=== PATIENT | female | born 1960 | race Caucasian/White ===

== ENCOUNTER → 2019-05-07 | Outpatient (CLI) | payer OTHER | END | disposition home or self-care (01) | LOC: CFH 11:58 | PROVIDERS: ATTEND Family Medicine | DX: N64.4 Mastodynia (principal); R92.2 Inconclusive mammogram | CPT/HCPCS: 76642; 77066; G0279 ==

== ENCOUNTER 2019-11-24 19:20 | Emergency (ER) | payer OTHER ==
[~2019-11-24] VITALS: Ht 170.2 cm; Wt 61.1 kg
--- NOTE | 2019-11-24 19:41 | NUR ---
PT C/O RT FLANK PAIN (CHRONIC) "I CAN'T CONTROL IT TODAY". TAKES PERCOCET -LAST DOSE 0 TODAY. DENIES KIDNEY STONES. HX: SCOLIOSIS, "DISKS". DENIES URINARY SX. LAST ORAL INTAKE: COFFEE THIS MORNING. PT'S SPOUSE & DAUGHTER IN ROOM.
[2019-11-24] MEDS ORDERED: KETOROLAC 30 MG/1 ML IM ONE (20:00)
[2019-11-24] MEDS ORDERED: KETOROLAC 60 MG/2 ML ONE (20:05)
[2019-11-24 20:10] LABS: BASOPHILS % (AUTO) 1 % (0-1); EOSINOPHILS # (AUTO) 0.05 x10^3/uL (0-0.4); EOSINOPHILS % (AUTO) 0 % (1-7); LYMPHOCYTES # (AUTO) 2.46 x10^3/uL (1-3.4); LYMPHOCYTES % (AUTO) 20 % (22-44); MD NO; MEAN CORPUSCULAR HEMOGLOBIN 32.9 pg (27.0-34.8); MEAN CORPUSCULAR HGB CONC 33.2 g/dL (32.4-35.8); MEAN CORPUSCULAR VOLUME 99.1 fL (80-100); MONOCYTES # (AUTO) 0.56 x10^3/uL (0.2-0.8); MONOCYTES % (AUTO) 5 % (2-9); NEUTROPHILS # (AUTO) 8.98 x10^3/uL (1.8-6.8); NEUTROPHILS % (AUTO) 74 % (42-75); PLATELET COUNT 352 x10^3/uL (130-400); RED BLOOD COUNT 4.58 x10^6/uL (3.82-5.3)
[2019-11-24 20:19] LABS: ALANINE AMINOTRANSFERASE 17 U/L (12-78); ANION GAP 4 mmol/L (5-15); CALCIUM 8.3 mg/dL (8.5-10.1); CHLORIDE 108 mmol/L (98-107); CREATININE 0.74 mg/dL (0.55-1.02)
[2019-11-24] MEDS ORDERED: OXYC-306 PO (20:19)
[2019-11-24] MEDS ORDERED: PANT40TA3 PO (20:19)
[2019-11-24] MEDS ORDERED: ALPR1TAB2 PO (20:19)
[2019-11-24] MEDS ORDERED: ROMO210S INJ (20:19)
[2019-11-24] MEDS ORDERED: ZOLP10TA PO (20:19)
[2019-11-24 20:21] LABS: ALKALINE PHOSPHATASE 59 U/L (45-117); BILIRUBIN,TOTAL 0.2 mg/dL (0.2-1.0); TOTAL PROTEIN 7.4 g/dL (6.4-8.2)
[2019-11-24 20:23] VITALS: BP 106/65
[2019-11-24] MEDS ORDERED: METHOCARBAMOL 750 MG TABLET ONE (21:22)
--- NOTE | 2019-11-24 21:26 | NUR ---
KEON GIVEN. PT STATES "I CAN NOT GO BACK HOME LIKE THIS, I'M IN TOO MUCH PAIN". OBSERVED PT SIT UP FROM SUPINE POSITION, LEAN FROM BED TO ROOM COUNTER AND BACK TO SITTING POSITION. FAMILY IN ROOM.
[2019-11-24] MEDS ORDERED: METHOCARBAMOL 750 MG TABLET PO ONE (21:30)
--- NOTE | 2019-11-24 22:09 | NUR ---
DC INSTRUCTIONS PROVIDED TO PT. PT ANGRY ABOUT DISCHARGE AND NO FURTHER INJECTIBLE MEDICATIONS. STATES "THIS IS BULLSHIT!", "I'M NEVER COMING BACK HERE". PT AMBULATORY TO DC W/ QUICK STEADY GAIT.
== END 2019-11-24 22:14 | disposition home or self-care (01) ==
LOC: ED 20:56
DX: G89.29 Other chronic pain (principal); M54.5 Low back pain; M54.6 Pain in thoracic spine; Z87.891 Personal history of nicotine dependence
CPT/HCPCS: 36415; 80053; 85025; 96372; 99283; J1885

== ENCOUNTER 2020-07-12 17:00 | Emergency (ER) | payer OTHER ==
[~2020-07-12] VITALS: Ht 170.2 cm; Wt 62.7 kg
[~2020-07-12 17:00] MED LIST: ALPR1TAB2 PO; OXYC-306 PO; PANT40TA3 PO; ROMO210S INJ; ZOLP10TA PO
[2020-07-12] MEDS ORDERED: KETOROLAC 30 MG/1 ML ONE (17:59)
[2020-07-12] MEDS ORDERED: MORPHINE SULFATE 4 MG/ML, 1ML ONE (17:59)
[2020-07-12] MEDS ORDERED: ONDANSETRON 2MG/ML, 2ML ONE (17:59)
[2020-07-12] MEDS ORDERED: MORPHINE SULFATE 4 MG/ML, 1ML IVPush PRN (18:00)
[2020-07-12] MEDS ORDERED: SODIUM CHLORIDE 0.9% 1,000ML IVBOLUS ONE (18:00)
[2020-07-12] MEDS ORDERED: SODIUM CHLORIDE FLUSH 10ML SYR IVF ONE (18:00)
[2020-07-12] MEDS ORDERED: KETOROLAC 30 MG/1 ML IVPush ONE (18:00)
[2020-07-12] MEDS ORDERED: ONDANSETRON 2MG/ML, 2ML IVPush ONE (18:00)
[2020-07-12 18:13] LABS: BASOPHILS % (AUTO) 1 % (0-1); EOSINOPHILS % (AUTO) 1 % (1-7); LYMPHOCYTES % (AUTO) 32 % (22-44); MEAN CORPUSCULAR HEMOGLOBIN 33.6 pg (27.0-34.8); MEAN CORPUSCULAR HGB CONC 34.5 g/dL (32.4-35.8); MEAN PLATELET VOLUME 7.6 fL (7.4-10.4); MONOCYTES % (AUTO) 7 % (2-9); NEUTROPHILS % (AUTO) 60 % (42-75); PLATELET COUNT 306 x10^3/uL (130-400); RED CELL DISTRIBUTION WIDTH 12.6 % (9.6-15.2)
[2020-07-12 18:17] LABS: ALANINE AMINOTRANSFERASE 32 U/L (12-78); ALBUMIN 4.4 g/dL (3.4-5.0); ANION GAP 7 mmol/L (5-15); CHLORIDE 106 mmol/L (98-107); CREATININE 0.73 mg/dL (0.55-1.02)
[2020-07-12 18:19] LABS: ALKALINE PHOSPHATASE 68 U/L (45-117); BILIRUBIN,TOTAL 0.5 mg/dL (0.2-1.0); MD NO; TOTAL PROTEIN 7.8 g/dL (6.4-8.2)
[2020-07-12 18:20] LABS: MICROSCOPIC INDICATED
--- NOTE | 2020-07-12 18:32 | NUR ---
Pt to imaging at this time.
--- NOTE | 2020-07-12 18:37 | NUR ---
This patient is a patient of urology for bladder spasms. Pt takes a medication to decrease painful urination with an adverse affect of turning her urine blue. Pt presents to the ER for abd pain worse in the lower quadrents but present in all. Pt also complains of back pain. Symptoms started approx 2 weeks ago. Pt was tested for UTI that came back negative at her urologists office approx "a few days ago."
--- NOTE | 2020-07-12 18:57 | NUR ---
Report to MENDEZ George. Pt resting in bed, NADN. Respirations even and unlabored.
--- NOTE | 2020-07-12 19:05 | NUR ---
Patient resting on stretcher, denies complaint at this time, vss, nad, call griffin within reach, will continue to monitor.
[2020-07-12 21:26] VITALS: BP 107/56
[2020-07-12] MEDS ORDERED: OMNIPAQUE 350 MG/ML, 100ML BOTTLE ONE (22:19)
== END 2020-07-12 21:28 | disposition home or self-care (01) ==
LOC: ED 18:00
DX: R10.84 Generalized abdominal pain (principal); M54.5 Low back pain; G89.29 Other chronic pain; Z90.710 Acquired absence of both cervix and uterus; Z87.891 Personal history of nicotine dependence; Z88.5 Allergy status to narcotic agent
CPT/HCPCS: 36415; 74177; 80053; 81001; 83690; 85025; 87086; 96361; 96374; 96375; 99285; J1885; J2270; J2405; J7030; Q9967

== ENCOUNTER 2020-10-22 18:31 | Emergency (ER) | payer OTHER ==
[~2020-10-22] VITALS: Ht 170.2 cm; Wt 63.7 kg
[~2020-10-22 18:31] MED LIST changes: -OXYC-306 PO; +OXYC1TAB17 PO
--- NOTE | 2020-10-22 18:37 | NUR ---
restorative rehab aide: EKG done in triage
[2020-10-22] MEDS ORDERED: METOCLOPRAMIDE 5 MG/ML, 2ML IVPush ONE (19:00)
[2020-10-22] MEDS ORDERED: MORPHINE SULFATE 4 MG/ML, 1ML IVPush ONE (19:00)
[2020-10-22] MEDS ORDERED: DIPHENHYDRAMINE 50 MG/ML, 1ML IVPush ONE (19:00)
[2020-10-22] MEDS ORDERED: METOCLOPRAMIDE 5 MG/ML, 2ML ONE (19:04)
[2020-10-22] MEDS ORDERED: DIPHENHYDRAMINE 50 MG/ML, 1ML ONE (19:04)
[2020-10-22] MEDS ORDERED: MORPHINE SULFATE 4 MG/ML, 1ML ONE (19:04)
[2020-10-22 19:31] LABS: BASOPHILS % (AUTO) 1 % (0-1); EOSINOPHILS % (AUTO) 0 % (1-7); LYMPHOCYTES % (AUTO) 39 % (22-44); MEAN CORPUSCULAR HEMOGLOBIN 33.8 pg (27.0-34.8); MEAN CORPUSCULAR HGB CONC 34.1 g/dL (32.4-35.8); MEAN PLATELET VOLUME 7.3 fL (7.4-10.4); MONOCYTES % (AUTO) 7 % (2-9); NEUTROPHILS % (AUTO) 53 % (42-75); PLATELET COUNT 307 x10^3/uL (130-400); RED BLOOD COUNT 4.13 x10^6/uL (3.82-5.3); RED CELL DISTRIBUTION WIDTH 13.3 % (9.6-15.2)
--- NOTE | 2020-10-22 19:32 | NUR ---
UA WALKED TO LAB, LABS SENT, MEDS PER MAR. PT V TEARFUL, ANXIOUS, POOR HISTORIAN BC WILL NOT STOP CRYING "YOU'RE NOT HELPING ME SOMETHINGS WRONG I'M GOING TO THROW UP" THROWING HERSELF AROUND ON THE STRETCHER YELLING V LOUDLY. PLAN CT. HYPERTENSIVE BC WILL NOT COOPERATE: CLENCHES FIST REPEATEDLY AND WILL NOT HOLD STILL.
[2020-10-22 19:39] LABS: ALANINE AMINOTRANSFERASE 19 U/L (12-78); ALBUMIN 4.1 g/dL (3.4-5.0); ANION GAP 9 mmol/L (5-15); CALCIUM 8.7 mg/dL (8.5-10.1); CHLORIDE 108 mmol/L (98-107); CREATININE 0.84 mg/dL (0.55-1.02); MD NO
[2020-10-22 19:40] LABS: MICROSCOPIC AUTO
[2020-10-22 19:42] LABS: ALKALINE PHOSPHATASE 70 U/L (45-117); BILIRUBIN,TOTAL 0.3 mg/dL (0.2-1.0); TOTAL PROTEIN 7.5 g/dL (6.4-8.2)
--- NOTE | 2020-10-22 20:09 | NUR ---
PT CALM SITTING ON BED TALKING WITH DAUGHTER WHEN THIS RN WALKED INTO ROOM. PT STS PAIN 02/10. CT PENDING. VSS, WNL.
[2020-10-22 21:05] VITALS: BP 128/79
== END 2020-10-22 21:07 | disposition home or self-care (01) ==
LOC: ED 20:15
DX: K57.32 Diverticulitis of large intestine without perforation or abscess without bleeding (principal); R10.84 Generalized abdominal pain; R00.0 Tachycardia, unspecified; G89.29 Other chronic pain; Z90.710 Acquired absence of both cervix and uterus; Z87.891 Personal history of nicotine dependence
CPT/HCPCS: 36415; 74176; 80053; 81001; 83690; 85025; 93005; 96374; 96375; 99285; J1200; J2270; J2765

== ENCOUNTER 2020-11-05 20:11 | Emergency (ER) | payer OTHER ==
[~2020-11-05] VITALS: Ht 170.2 cm; Wt 64.4 kg
[2020-11-05] MEDS ORDERED: KETOROLAC 30 MG/1 ML IVPush ONE (21:00)
[2020-11-05] MEDS ORDERED: SODIUM CHLORIDE FLUSH 10ML SYR IVF ONE (21:00)
[2020-11-05] MEDS ORDERED: HYDROmorphone 1 MG/ML, 1ML INJ ONE (21:00)
[2020-11-05] MEDS ORDERED: KETOROLAC 30 MG/1 ML ONE (21:00)
[2020-11-05] MEDS ORDERED: ONDANSETRON 2MG/ML, 2ML ONE (21:00)
[2020-11-05] MEDS ORDERED: SODIUM CHLORIDE 0.9% 1,000ML IVBOLUS ONE (21:00)
[2020-11-05] MEDS ORDERED: ONDANSETRON 2MG/ML, 2ML IVPush ONE (21:00)
[2020-11-05] MEDS ORDERED: MORPHINE SULFATE 4 MG/ML, 1ML IVPush PRN (21:00)
[2020-11-05] MEDS ORDERED: HYDROmorphone 1 MG/ML, 1ML INJ IV ONE (21:00)
[2020-11-05 21:26] LABS: BASOPHILS % (AUTO) 1 % (0-1); EOSINOPHILS % (AUTO) 1 % (1-7); LYMPHOCYTES % (AUTO) 43 % (22-44); MEAN CORPUSCULAR HEMOGLOBIN 33.7 pg (27.0-34.8); MEAN CORPUSCULAR HGB CONC 34.5 g/dL (32.4-35.8); MEAN PLATELET VOLUME 7.2 fL (7.4-10.4); MONOCYTES % (AUTO) 7 % (2-9); NEUTROPHILS % (AUTO) 48 % (42-75); PLATELET COUNT 283 x10^3/uL (130-400); RED CELL DISTRIBUTION WIDTH 12.6 % (9.6-15.2)
[2020-11-05 21:30] LABS: MD NO
--- NOTE | 2020-11-05 21:35 | NUR ---
1ST CONTACT C PT. IN POSITION ON CART. C/O ABD PAIN & LOWER BACK PAIN. STATES SHES BEEN HERE 3 TIMES SINCE JUL. MEDS PER SEP. AWARE OF PLAN FOR CT. U/A CUP AT BS. WILL CTM.
[2020-11-05 21:37] LABS: ANION GAP 8 mmol/L (5-15); CHLORIDE 110 mmol/L (98-107)
[2020-11-05 21:38] LABS: ALANINE AMINOTRANSFERASE 31 U/L (12-78); ALBUMIN 3.8 g/dL (3.4-5.0); CALCIUM 8.1 mg/dL (8.5-10.1); CREATININE 0.62 mg/dL (0.55-1.02)
[2020-11-05 21:40] LABS: ALKALINE PHOSPHATASE 64 U/L (45-117); BILIRUBIN,TOTAL 0.3 mg/dL (0.2-1.0); TOTAL PROTEIN 6.9 g/dL (6.4-8.2)
--- NOTE | 2020-11-05 21:49 | NUR ---
PT TO CT VIA CART.
--- NOTE | 2020-11-05 22:23 | NUR ---
PT STATES SHE HAS HAD NO RELIEF FROM PAIN MEDS. VSS. CHART UP FOR REVIEW.
[2020-11-06 00:12] LABS: MICROSCOPIC INDICATED
[2020-11-06 01:14] VITALS: BP 132/61
== END 2020-11-06 01:15 | disposition home or self-care (01) ==
LOC: ED 21:12
DX: R10.31 Right lower quadrant pain (principal); R10.11 Right upper quadrant pain; K59.00 Constipation, unspecified; G89.29 Other chronic pain; Z90.710 Acquired absence of both cervix and uterus
CPT/HCPCS: 36415; 74176; 80053; 81001; 83690; 85025; 87086; 96361; 96374; 96375; 99284; J1170; J1885; J2405; J7030; 87077

== ENCOUNTER 2020-11-06 01:25 | Emergency (ER) | payer OTHER ==
[~2020-11-06] VITALS: Ht 170.2 cm; Wt 65.0 kg
--- NOTE | 2020-11-06 01:56 | NUR ---
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
--- NOTE | 2020-11-06 02:01 | NUR ---
PT WAS DISCHARGED EARLIER TODAY. PT RETURNED FOR INCREASED ABD PAIN. PT HAS FRIEND AT BED SIDE. PT ON MONITOR WITH PT VSS. PT PROVIDER BLANKET.
--- NOTE | 2020-11-06 02:41 | NUR ---
PT RESTING IN BED WITH FAMILY AT PT SIDE. PT A/O X4 WITH UNLABORED EQUAL BREATHS. PT ON MONITOR WITH PT VSS. PT DENIED ANY CURRENT WANTS OR NEEDS AT THIS TIME.
[2020-11-06 02:58] VITALS: BP 131/74
== END 2020-11-06 03:00 | disposition home or self-care (01) ==
LOC: ED 02:52
DX: G89.29 Other chronic pain (principal); R10.84 Generalized abdominal pain; M54.5 Low back pain; Z87.891 Personal history of nicotine dependence; Z90.710 Acquired absence of both cervix and uterus
CPT/HCPCS: 99281

== ENCOUNTER 2020-11-10 08:54 | Emergency (ER) | payer OTHER ==
[~2020-11-10] VITALS: Ht 170.2 cm; Wt 63.7 kg
--- NOTE | 2020-11-10 09:25 | NUR ---
ACUTE ON CHRONIC ABDOMINAL AND BACK PAIN SINCE JULY. PT DENIES PROBLEM WITH BM, DENIES N/V. PT SEEN HERE LAST WEEK FOR SAME. DAVON AGUDELO IN TO ASSESS PT. UA COLLECTED. PT AMBULATES STEADILY INDEPENDENTLY.
[2020-11-10 09:45] LABS: MICROSCOPIC AUTO
[2020-11-10 10:04] LABS: BASOPHILS % (AUTO) 1 % (0-1); EOSINOPHILS % (AUTO) 0 % (1-7); LYMPHOCYTES % (AUTO) 23 % (22-44); MEAN CORPUSCULAR HEMOGLOBIN 33.2 pg (27.0-34.8); MEAN CORPUSCULAR HGB CONC 33.6 g/dL (32.4-35.8); MONOCYTES % (AUTO) 6 % (2-9); NEUTROPHILS % (AUTO) 70 % (42-75); PLATELET COUNT 276 x10^3/uL (130-400); RED BLOOD COUNT 4.12 x10^6/uL (3.82-5.3); RED CELL DISTRIBUTION WIDTH 12.9 % (9.6-15.2)
[2020-11-10 10:06] LABS: MD NO
[2020-11-10 10:07] LABS: ALANINE AMINOTRANSFERASE 24 U/L (12-78); ANION GAP 7 mmol/L (5-15); CHLORIDE 111 mmol/L (98-107); CREATININE 0.55 mg/dL (0.55-1.02)
[2020-11-10 10:10] LABS: ALKALINE PHOSPHATASE 51 U/L (45-117); BILIRUBIN,TOTAL 0.4 mg/dL (0.2-1.0); TOTAL PROTEIN 7.3 g/dL (6.4-8.2)
[2020-11-10] MEDS ORDERED: CHOLESTEROL MED PO (10:41)
--- NOTE | 2020-11-10 10:43 | NUR ---
PT C/O PAIN, REQUESTS PAIN MEDS TO CRYPTOZOOLOGIST. PROVIDER AWARE OF PT'S CURRENT PAIN SCALE RATING AND REQUEST FOR PAIN MEDICATION. AWAITING RECHECK AND FURTHER ORDERS.
[2020-11-10 10:47] VITALS: BP 112/64
--- NOTE | 2020-11-10 10:48 | NUR ---
ED MD IN TO DISCUSS FINDINGS WITH PT.
== END 2020-11-10 11:41 | disposition home or self-care (01) ==
LOC: ED 09:13
DX: R10.84 Generalized abdominal pain (principal); G89.29 Other chronic pain; Z87.891 Personal history of nicotine dependence
CPT/HCPCS: 36415; 80053; 81001; 83690; 85025; 87077; 87086; 87186; 99283